=== PATIENT | female | born 1990 | race Caucasian/White ===

== ENCOUNTER 2016-10-26 17:44 | Emergency (ER) | payer OTHER | END 2016-10-26 18:35 | disposition home or self-care (01) | LOC: ER 17:44 | DX: L02.413 Cutaneous abscess of right upper limb (principal); E11.9 Type 2 diabetes mellitus without complications; I10 Essential (primary) hypertension; E78.5 Hyperlipidemia, unspecified; Z87.891 Personal history of nicotine dependence; Z79.4 Long term (current) use of insulin; Z88.0 Allergy status to penicillin ==

== ENCOUNTER 2016-10-28 21:53 | Emergency (ER) | payer OTHER | END 2016-10-28 22:00 | disposition home or self-care (01) | LOC: ER 21:53 | DX: Z48.01 Encounter for change or removal of surgical wound dressing (principal); I10 Essential (primary) hypertension; E11.9 Type 2 diabetes mellitus without complications; Z87.891 Personal history of nicotine dependence; Z88.0 Allergy status to penicillin; Z79.4 Long term (current) use of insulin ==